=== PATIENT | female | born 1985 | race Hispanic/Latino ===

== ENCOUNTER 2018-03-21 09:28 | Emergency (ER) | payer MEDICAID | END 2018-03-21 10:55 | disposition home or self-care (01) | LOC: EDH 09:28 | DX: J06.9 Acute upper respiratory infection, unspecified (principal); Z88.1 Allergy status to other antibiotic agents; Z88.2 Allergy status to sulfonamides; Z87.442 Personal history of urinary calculi; Z90.49 Acquired absence of other specified parts of digestive tract | CPT/HCPCS: 99281 ==

== ENCOUNTER 2020-06-05 02:38 | Emergency (ER) | payer MEDICAID, OTHER ==
[2020-06-05 03:33] LABS: BASOPHILS % (AUTO) 0.4 % (0.0-5.0); EOSINOPHILS % (AUTO) 1.6 % (0.0-8.0); HEMATOCRIT 37.9 % (36-48); MEAN CORPUSCULAR HEMOGLOBIN 26.3 pg (27.0-33.0); MEAN CORPUSCULAR HGB CONC 31.9 g/dL (32.0-36.0); MEAN CORPUSCULAR VOLUME 82.4 fL (79-99); MONOCYTES % (AUTO) 7.7 % (3.0-13.0); PLATELET COUNT (AUTO) 268 K/uL (130-400); RED CELL DISTRIBUTION WIDTH 13.9 % (11.0-15.5)
[2020-06-05 03:42] LABS: POTASSIUM 3.5 mmol/L (3.5-5.1)
[2020-06-05 03:47] LABS: ALBUMIN 2.9 g/dL (3.5-5.0); BILIRUBIN,TOTAL 0.3 mg/dL (0.2-1.0); TOTAL PROTEIN, SERUM 7.5 g/dL (6.0-8.3)
[2020-06-05 04:05] LABS: APPEARANCE,URINE Cloudy (CLEAR); BILIRUBIN,URINE Negative (NEGATIVE); COLOR,URINE Dark Yellow (YELLOW); GLUCOSE, URINE (UA) Negative (NEGATIVE); KETONES,URINE Negative (NEGATIVE); LEUKOCYTE ESTERASE ,URINE Moderate (NEGATIVE); NITRATE,URINE Negative (NEGATIVE); OCCULT BLOOD,URINE Moderate (NEGATIVE); PH,URINE 5.5 (5.0-8.0); PROTEIN,URINE POS 2+ mg/dL (NEGATIVE)
[2020-06-05] MEDS ORDERED: CEFTRIAXONE SODIUM 1 GM ONE (04:16)
[2020-06-05] MEDS ORDERED: KETOROLAC TROMETHAMINE 30MG/ML ONE (04:16)
[2020-06-05 04:22] LABS: BACTERIA,URINE Few /HPF (None Seen); SQUAMOUS EPITHELIAL CELL,UR Rare /HPF (0-2)
== END 2020-06-05 06:47 | disposition home or self-care (01) ==
LOC: EDH 02:38
DX: N20.2 Calculus of kidney with calculus of ureter (principal); Z88.1 Allergy status to other antibiotic agents; Z88.2 Allergy status to sulfonamides; Z90.710 Acquired absence of both cervix and uterus; Z98.890 Other specified postprocedural states
CPT/HCPCS: 36415; 74176; 80053; 81001; 85025; 87088; 96365; 96375; 99284; J0696; J1885

== ENCOUNTER 2022-12-22 09:42 | Emergency (ER) | payer OTHER ==
[~2022-12-22] VITALS: Ht 162.6 cm; Wt 152.0 kg
[2022-12-22 10:32] LABS: APPEARANCE,URINE CLOUDY (CLEAR); BILIRUBIN,URINE NEGATIVE (NEGATIVE); COLOR,URINE LIGHT-YELLOW (YELLOW); GLUCOSE, URINE (UA) NEGATIVE (NEGATIVE); KETONES,URINE NEGATIVE (NEGATIVE); LEUKOCYTE ESTERASE ,URINE 500 Leu/uL (NEGATIVE); NITRATE,URINE 2+ (NEGATIVE); OCCULT BLOOD,URINE LARGE (NEGATIVE); PH,URINE 6.5 (5.0-8.0); PROTEIN,URINE 20 mg/dL (NEGATIVE); UROBILINOGEN,URINE 0.2 mg/dL (0.2-1.0)
[2022-12-22 10:36] LABS: HCG,QUALITATIVE URINE NEGATIVE (NEGATIVE)
[2022-12-22 10:49] LABS: BACTERIA,URINE RARE /HPF (None Seen); MUCUS,URINE RARE LPF (None Seen); SQUAMOUS EPITHELIAL CELL,UR RARE /HPF (0-2); WBC,URINE 51-100 /HPF (0-1); YEAST,URINE BUDDING FEW /HPF (None Seen)
[2022-12-22 10:52] LABS: BASOPHILS % (AUTO) 0.5 % (0.0-5.0); EOSINOPHILS % (AUTO) 0.4 % (0.0-8.0); HEMATOCRIT 42.4 % (36-48); LYMPHOCYTES % (AUTO) 21.2 % (21.0-51.0); MEAN CORPUSCULAR HEMOGLOBIN 26.9 pg (27.0-33.0); MEAN CORPUSCULAR HGB CONC 31.1 g/dL (32.0-36.0); MEAN CORPUSCULAR VOLUME 86.4 fL (79-99); MONOCYTES % (AUTO) 3.7 % (3.0-13.0); NEUTROPHILS % (AUTO) 73.8 % (40.0-77.0); PLATELET COUNT (AUTO) 274 K/uL (130-400); RED BLOOD CELL COUNT(AUTO) 4.91 MIL/uL (4.00-5.50); RED CELL DISTRIBUTION WIDTH 14.6 % (11.0-15.5); WHITE BLOOD COUNT (AUTO) 9.7 K/uL (4.8-10.8)
[2022-12-22 11:00] LABS: CREATININE 0.8 mg/dL (0.5-1.5)
[2022-12-22 11:05] LABS: ALBUMIN 2.9 g/dL (3.5-5.0); TOTAL PROTEIN, SERUM 6.8 g/dL (6.0-8.3)
[2022-12-22] MEDS ORDERED: CEFTRIAXONE 1G VIAL IM ONE (11:30)
[2022-12-22] MEDS ORDERED: CEFTRIAXONE 1G VIAL IVPB ONE (12:00)
[2022-12-22] MEDS ORDERED: ONDANSETRON 4MG INJ IVP ONE (12:00)
[2022-12-22] MEDS ORDERED: KETOROLAC 15MG/ML VIAL (15MG/ML) IV ONE (12:00)
[2022-12-22] MEDS ORDERED: 0.9%NACL 1000ML 1,000 ML IV ONE (12:00)
[2022-12-22] MEDS ORDERED: ONDA4TAB10 PO (13:08)
[2022-12-22] MEDS ORDERED: NITR100C PO (13:08)
[2022-12-22 14:38] VITALS: BP 128/81
== END 2022-12-22 14:42 | disposition home or self-care (01) ==
LOC: EDH 09:42
DX: N39.0 Urinary tract infection, site not specified (principal); Z88.1 Allergy status to other antibiotic agents; Z88.2 Allergy status to sulfonamides; Z90.49 Acquired absence of other specified parts of digestive tract
CPT/HCPCS: 99285; 74176; 96374; 96375; 80053; 83690; 85025; 87077; 87088; 87186; 81001; 81025; 36415; J7030; J0696; J2405; J1885

== ENCOUNTER 2024-02-05 23:23 | Inpatient (IN) | payer BC, OTHER ==
[~2024-02-05] VITALS: Ht 162.6 cm; Wt 166.9 kg
[~2024-02-05 23:23] MED LIST: NITR100C PO; ONDA-243 PO
[2024-02-05 23:48] LABS: BASOPHILS # (AUTO) 0.04 K/uL (0.00-0.20); BASOPHILS % (AUTO) 0.3 % (0.0-5.0); EOSINOPHILS # (AUTO) 0.05 K/uL (0.00-0.70); EOSINOPHILS % (AUTO) 0.4 % (0.0-8.0); HEMATOCRIT 38.7 % (36-48); IMMATURE GRANULOCYTE ABSOLUTE 0.05 K/uL (0-1); LYMPHOCYTES # (AUTO) 1.3 K/uL (1.0-4.8); LYMPHOCYTES % (AUTO) 10.8 % (21.0-51.0); MEAN CORPUSCULAR HEMOGLOBIN 25.2 pg (27.0-33.0); MEAN CORPUSCULAR VOLUME 81.3 fL (79-99); MONOCYTES # (AUTO) 0.1 K/uL (0.1-1.0); MONOCYTES % (AUTO) 0.7 % (3.0-13.0); NEUTROPHILS # (AUTO) 10.2 K/uL (1.8-7.7); NEUTROPHILS % (AUTO) 87.4 % (40.0-77.0); PLATELET COUNT (AUTO) 292 K/uL (130-400); RED BLOOD CELL COUNT(AUTO) 4.76 MIL/uL (4.00-5.50); RED CELL DISTRIBUTION WIDTH 15.8 % (11.0-15.5); WHITE BLOOD COUNT (AUTO) 11.7 K/uL (4.8-10.8)
[2024-02-06] VITALS (62 sets, daily range): BP systolic 101–135; BP diastolic 48–78; PULSE 82–107; RESP 5–48; TEMP 98.4–99.2; O2SAT 93–100
[2024-02-06 00:02] LABS: CREATININE 0.9 mg/dL (0.5-1.0); POTASSIUM 3.9 mmol/L (3.5-5.1)
[2024-02-06] MEDS: 0.9%NACL 1000ML 2,000 ML IV ONE (00:04)
[2024-02-06] MEDS: cefTRIAXone 1G VIAL IVPB STA (00:05)
[2024-02-06] MEDS: morPHINE 2 MG SYG IVP STA (00:16)
[2024-02-06] MEDS: ONDANSETRON 4MG INJ IVP STA (00:16)
[2024-02-06] MEDS: ketOROlac 30MG VIAL (30MG/ML) IM STA (00:16)
[2024-02-06 00:30] LABS: BILIRUBIN,URINE NEGATIVE (NEGATIVE); COLOR,URINE YELLOW (YELLOW); GLUCOSE, URINE (UA) NEGATIVE (NEGATIVE); KETONES,URINE NEGATIVE (NEGATIVE); LEUKOCYTE ESTERASE ,URINE MODERATE Leu/uL (NEGATIVE); NITRATE,URINE POSITIVE (NEGATIVE); OCCULT BLOOD,URINE MODERATE (NEGATIVE); PROTEIN,URINE 30 mg/dL (NEGATIVE); UROBILINOGEN,URINE 0.2 mg/dL (0.2-1.0)
[2024-02-06 00:34] LABS: ADD UA MICROSCOPIC YES
[2024-02-06 00:35] LABS: APPEARANCE,URINE SLIGHTLY CLOUDY (CLEAR)
[2024-02-06 00:41] LABS: WBC,URINE 26-50 /HPF (0-1)
[2024-02-06 00:42] LABS: BACTERIA,URINE Moderate /HPF (None Seen); YEAST,URINE BUDDING Rare /HPF (None Seen)
[2024-02-06 00:45] LABS: SQUAMOUS EPITHELIAL CELL,UR Few /HPF (0-2)
[2024-02-06] MEDS: acetaMINOPHEN 500 MG TABLET PO ONE (03:58)
[2024-02-06] MEDS: 0.9%NACL 1000ML 1,000 ML IV ONE (04:52)
[2024-02-06] MEDS: NOREPINEPHRIN 4MG/NS 250ML 250 ML IV SCH (04:52)
[2024-02-06] MEDS: LACTATED RINGERS 1000ML IV ONE (07:54)
[2024-02-06] MEDS: ZOSYN 3.375GM +NS 50ML IV SCH (07:58)
[2024-02-06] MEDS: FAMOTIDINE 20MG TAB PO SCH (07:58)
[2024-02-06] MEDS: IBUPROFEN 600 MG TABLET PO PRN (08:00)
[2024-02-06 08:20] LABS: INR 1.13 (0.85-1.15); PROTHROMBIN TIME 12.1 SEC (9.6-11.6)
[2024-02-06] MEDS ORDERED: ONDANSETRON 4MG INJ IV PRN (08:30)
[2024-02-06] MEDS ORDERED: acetaMINOPHEN 325 MG TAB PO PRN ×2 (08:30)
[2024-02-06] MEDS: ENOXAPARIN SODIUM 40 MG/0.4 ML SYRINGE SQ SCH (09:16)
[2024-02-06] MEDS: LACTATED RINGERS 1000ML 1,000 ML IV SCH (09:20)
[2024-02-06] MEDS ORDERED: IOHEXOL-350 50ML VIAL IV ONE (15:58)
[2024-02-06] MEDS: SUGAMMADEX SODIUM 200 MG/2 ML VIAL IV ONE (16:37)
[2024-02-06] MEDS: LACTATED RINGERS 1000ML IV SCH (17:55)
[2024-02-07] VITALS (32 sets, daily range): BP systolic 93–132; BP diastolic 40–67; PULSE 75–92; RESP 12–35; TEMP 97.6–98.7; O2SAT 94–99
[2024-02-07 04:26] LABS: BASOPHILS # (AUTO) 0.04 K/uL (0.00-0.20); BASOPHILS % (AUTO) 0.2 % (0.0-5.0); EOSINOPHILS # (AUTO) 0.35 K/uL (0.00-0.70); EOSINOPHILS % (AUTO) 1.6 % (0.0-8.0); HEMATOCRIT 30.2 % (36-48); IMMATURE GRANULOCYTE ABSOLUTE 0.16 K/uL (0-1); LYMPHOCYTES # (AUTO) 0.9 K/uL (1.0-4.8); MEAN CORPUSCULAR HEMOGLOBIN 25.1 pg (27.0-33.0); MEAN CORPUSCULAR HGB CONC 31.1 g/dL (32.0-36.0); MEAN CORPUSCULAR VOLUME 80.5 fL (79-99); MONOCYTES # (AUTO) 0.5 K/uL (0.1-1.0); MONOCYTES % (AUTO) 2.3 % (3.0-13.0); NEUTROPHILS # (AUTO) 20.5 K/uL (1.8-7.7); NEUTROPHILS % (AUTO) 91.2 % (40.0-77.0); PLATELET COUNT (AUTO) 197 K/uL (130-400); RED BLOOD CELL COUNT(AUTO) 3.75 MIL/uL (4.00-5.50); RED CELL DISTRIBUTION WIDTH 16.1 % (11.0-15.5); WHITE BLOOD COUNT (AUTO) 22.5 K/uL (4.8-10.8)
[2024-02-07 04:43] LABS: BILIRUBIN,TOTAL 0.4 mg/dL (0.2-1.0); MAGNESIUM 1.5 mg/dL (1.80-2.40); PHOSPHORUS 2.6 mg/dL (2.5-4.9); POTASSIUM 3.5 mmol/L (3.5-5.1); TOTAL PROTEIN, SERUM 6.2 g/dL (6.0-8.3)
[2024-02-07 04:50] LABS: B-TYPE NATRIURETIC PEPTIDE 200 pg/mL (0-100)
[2024-02-07 11:06] LABS: INR 1.28 (0.85-1.15); PROTHROMBIN TIME 13.6 SEC (9.6-11.6)
[2024-02-07] MEDS: MAGNESIUM 2GM PREMIX 50ML 50 ML IV SCH (18:37)
[2024-02-08] MEDS: traMADol HCL 50 MG TABLET PO PRN (00:15)
[2024-02-08 04:00] VITALS: BP 101/53; PULSE 73; RESP 19; TEMP 98.3
[2024-02-08] MEDS: IBUPROFEN 600 MG TABLET PO PRN (05:00)
[2024-02-08 05:17] LABS: HEMATOCRIT 30.2 % (36-48); MEAN CORPUSCULAR HEMOGLOBIN 25.1 pg (27.0-33.0); MEAN CORPUSCULAR HGB CONC 31.5 g/dL (32.0-36.0); MEAN CORPUSCULAR VOLUME 79.7 fL (79-99); RED BLOOD CELL COUNT(AUTO) 3.79 MIL/uL (4.00-5.50); RED CELL DISTRIBUTION WIDTH 16.2 % (11.0-15.5); WHITE BLOOD COUNT (AUTO) 19.2 K/uL (4.8-10.8)
[2024-02-08 05:43] LABS: ALBUMIN 2.1 g/dL (3.5-5.0); BILIRUBIN,TOTAL 0.1 mg/dL (0.2-1.0); CREATININE 0.8 mg/dL (0.5-1.0); MAGNESIUM 1.8 mg/dL (1.80-2.40); POTASSIUM 3.6 mmol/L (3.5-5.1); TOTAL PROTEIN, SERUM 6.4 g/dL (6.0-8.3)
[2024-02-08 08:00] VITALS: BP 97/61; PULSE 71; RESP 19; TEMP 98.1; O2SAT 99
[2024-02-08 12:00] VITALS: BP 110/60; PULSE 85; RESP 18; TEMP 98
[2024-02-08] MEDS: furoSEMIDE 20MG VIAL IVP SCH (13:06)
[2024-02-08 16:00] VITALS: BP 100/63; PULSE 79; RESP 19; TEMP 98.1
[2024-02-08 20:00] VITALS: BP 119/71; PULSE 80; RESP 19; TEMP 98.4; O2SAT 96
[2024-02-09] VITALS (9 sets, daily range): BP systolic 94–123; BP diastolic 53–75; PULSE 65–88; RESP 16–20; TEMP 97.5–98.5; O2SAT 96–97
[2024-02-09] MEDS ORDERED: POTASSIUM CHLORIDE 20MEQ/100ML 100 ML IV PRN ×2 (05:00)
[2024-02-09] MEDS ORDERED: POTASSIUM CHLORIDE 10% ELIXIR 20 MEQ/15 ML UDCUP PO PRN (05:00)
[2024-02-09 05:55] LABS: HEMATOCRIT 31.8 % (36-48); MEAN CORPUSCULAR HEMOGLOBIN 24.8 pg (27.0-33.0); MEAN CORPUSCULAR HGB CONC 31.1 g/dL (32.0-36.0); MEAN CORPUSCULAR VOLUME 79.5 fL (79-99); RED CELL DISTRIBUTION WIDTH 15.9 % (11.0-15.5); WHITE BLOOD COUNT (AUTO) 11.3 K/uL (4.8-10.8)
[2024-02-09 06:44] LABS: CREATININE 0.9 mg/dL (0.5-1.0); PHOSPHORUS 4.5 mg/dL (2.5-4.9); POTASSIUM 3.1 mmol/L (3.5-5.1)
[2024-02-09 06:59] LABS: ALBUMIN 2.4 g/dL (3.5-5.0); BILIRUBIN,TOTAL 0.3 mg/dL (0.2-1.0)
[2024-02-09] MEDS: KCL 20 MEQ ERTAB PO PRN (07:36)
[2024-02-09 07:44] LABS: MAGNESIUM 1.8 mg/dL (1.80-2.40)
[2024-02-09] MEDS: LACTULOSE 20 GM/30 ML UDCUP PO ONE (13:03)
[2024-02-09] MEDS: MAGNESIUM HYDROXIDE 30 ML/UDCUP PO ONE (13:03)
[2024-02-09] MEDS: BisaCODYL 10 MG SUPP.RECT RC ONE (13:04)
[2024-02-10] VITALS (8 sets, daily range): BP systolic 92–151; BP diastolic 53–70; PULSE 78–94; RESP 16–20; TEMP 97.3–98.5; O2SAT 94
[2024-02-11] VITALS (26 sets, daily range): BP systolic 101–128; BP diastolic 61–87; PULSE 71–89; RESP 17–22; TEMP 97.6–99; O2SAT 96
[2024-02-11 05:59] LABS: BASOPHILS # (AUTO) 0.07 K/uL (0.00-0.20); BASOPHILS % (AUTO) 0.5 % (0.0-5.0); EOSINOPHILS # (AUTO) 0.22 K/uL (0.00-0.70); EOSINOPHILS % (AUTO) 1.6 % (0.0-8.0); HEMATOCRIT 36.8 % (36-48); IMMATURE GRANULOCYTE ABSOLUTE 0.23 K/uL (0-1); LYMPHOCYTES # (AUTO) 3.3 K/uL (1.0-4.8); LYMPHOCYTES % (AUTO) 23.9 % (21.0-51.0); MEAN CORPUSCULAR HEMOGLOBIN 24.8 pg (27.0-33.0); MEAN CORPUSCULAR VOLUME 80.2 fL (79-99); MONOCYTES # (AUTO) 0.7 K/uL (0.1-1.0); MONOCYTES % (AUTO) 4.9 % (3.0-13.0); NEUTROPHILS # (AUTO) 9.2 K/uL (1.8-7.7); NEUTROPHILS % (AUTO) 67.4 % (40.0-77.0); PLATELET COUNT (AUTO) 306 K/uL (130-400); RED BLOOD CELL COUNT(AUTO) 4.59 MIL/uL (4.00-5.50); RED CELL DISTRIBUTION WIDTH 15.8 % (11.0-15.5); WHITE BLOOD COUNT (AUTO) 13.6 K/uL (4.8-10.8)
[2024-02-11 06:14] LABS: INR 1.01 (0.85-1.15); PROTHROMBIN TIME 10.9 SEC (9.6-11.6)
[2024-02-11 06:15] LABS: PARTIAL THROMBOPLASTIN TIME 24.5 SEC (26.3-35.5)
[2024-02-11 06:20] LABS: ALBUMIN 2.7 g/dL (3.5-5.0); BILIRUBIN,TOTAL 0.4 mg/dL (0.2-1.0); CREATININE 0.9 mg/dL (0.5-1.0); POTASSIUM 3.8 mmol/L (3.5-5.1); TOTAL PROTEIN, SERUM 7.6 g/dL (6.0-8.3)
[2024-02-11] MEDS ORDERED: LIDOCAINE PF 100MG/5ML (2%) SYRINGE 5ML ONE (12:25)
[2024-02-11] MEDS ORDERED: SUCCINYLCHOLINE CHLORIDE 20 MG/ML 10 ML VIAL ONE ×2 (12:25→12:55)
[2024-02-11] MEDS ORDERED: dexaMETHasone SOD PHOSPHATE 4 MG/ML 1ML VIAL ONE (12:25)
[2024-02-11] MEDS ORDERED: GLYCOPYRROLATE 0.2 MG/ML 5 ML VIAL ONE (12:26)
[2024-02-11] MEDS ORDERED: MIDAZOLAM HCL 1 MG/ML 2ML VIAL ONE (12:26)
[2024-02-11] MEDS ORDERED: ONDANSETRON 4MG INJ ONE (12:26)
[2024-02-11] MEDS ORDERED: proPOFol 10 MG/ML 20ML VIAL IV ONE (12:26)
[2024-02-11] MEDS ORDERED: NEOSTIGMINE METHYLSULFATE 1MG/ML IV ONE (12:26)
[2024-02-11] MEDS ORDERED: rocuRONium bROMide 10MG/1ML 5ML VL ONE ×2 (12:27→13:37)
[2024-02-11] MEDS ORDERED: FENTanyl CITRate PF 50 MCG/1 ML 2ML VIAL ONE ×2 (12:27→13:29)
[2024-02-11] MEDS ORDERED: ROPivacaine 0.5% 5MG/ML 30ML ONE (12:32)
[2024-02-11] MEDS ORDERED: PHENYLEPHRINE HCL 10 MG/ML 1ML VIAL IV ONE (13:18)
[2024-02-11] MEDS: MEPERIDINE-PF 25 MG/ML SYG ONE ×2 (15:11→15:20)
[2024-02-11] MEDS: ONDANSETRON 4MG INJ ONE (15:11)
[2024-02-12] VITALS (7 sets, daily range): BP systolic 104–112; BP diastolic 53–73; PULSE 65–85; RESP 16–19; TEMP 97.6–98.5; O2SAT 94–98
[2024-02-12 05:15] LABS: BASOPHILS # (AUTO) 0.02 K/uL (0.00-0.20); BASOPHILS % (AUTO) 0.1 % (0.0-5.0); HEMATOCRIT 34.2 % (36-48); IMMATURE GRANULOCYTE ABSOLUTE 0.22 K/uL (0-1); LYMPHOCYTES # (AUTO) 1.6 K/uL (1.0-4.8); LYMPHOCYTES % (AUTO) 10.5 % (21.0-51.0); MEAN CORPUSCULAR HEMOGLOBIN 24.7 pg (27.0-33.0); MEAN CORPUSCULAR VOLUME 79.7 fL (79-99); MONOCYTES # (AUTO) 0.5 K/uL (0.1-1.0); MONOCYTES % (AUTO) 3.3 % (3.0-13.0); NEUTROPHILS % (AUTO) 84.7 % (40.0-77.0); PLATELET COUNT (AUTO) 365 K/uL (130-400); RED BLOOD CELL COUNT(AUTO) 4.29 MIL/uL (4.00-5.50); RED CELL DISTRIBUTION WIDTH 15.6 % (11.0-15.5); WHITE BLOOD COUNT (AUTO) 15.4 K/uL (4.8-10.8)
[2024-02-12 05:28] LABS: ALBUMIN 2.5 g/dL (3.5-5.0); BILIRUBIN,TOTAL 0.3 mg/dL (0.2-1.0); CREATININE 0.8 mg/dL (0.5-1.0); POTASSIUM 4.2 mmol/L (3.5-5.1); TOTAL PROTEIN, SERUM 7.6 g/dL (6.0-8.3)
[2024-02-12] MEDS ORDERED: IpraTROPium 0.5 MG/2.5 ML INH IH SCH (10:30)
[2024-02-12] MEDS: Solu-medROL 40MG VIAL IVP ONE (10:43)
[2024-02-12] MEDS: IpraTROPium 0.5 MG/2.5 ML INH IH ONE (11:31)
[2024-02-12] MEDS: IpraTROPium 0.5 MG/2.5 ML INH IH SCH (11:32)
[2024-02-12] MEDS ORDERED: LEVO-70 PO (13:45)
[2024-02-12] MEDS ORDERED: FAMO20TA8 PO (13:45)
[2024-02-12] MEDS ORDERED: IBUP-2070 PO (13:45)
[2024-02-12] MEDS ORDERED: BUDESONIDE 0.5 MG/2 ML INH IH SCH ×2 (18:00→21:00)
[2024-02-26 14:17] LABS: STONE COLOR SSR; STONE COMPOSITION SSR; STONE SIZE SSR; STONE WEIGHT SSR
== END 2024-02-12 15:30 | disposition home or self-care (01) | DRG 853 ==
LOC: EDH 23:23 → EDHIP 02-06 08:17 → 2CH 02-06 12:12 → 3BH 02-07 17:45
PROVIDERS: ADMIT Internal Medicine; ATTEND Internal Medicine
PROC: 0T788DZ Dilation of Bilateral Ureters with Intraluminal Device, Via Natural or Artificial Opening Endoscopic (ICD-10-PCS; 2024-02-06)
PROC: BT1D1ZZ Fluoroscopy of Right Kidney, Ureter and Bladder using Low Osmolar Contrast (ICD-10-PCS; 2024-02-06)
PROC: 05HB33Z Insertion of Infusion Device into Right Basilic Vein, Percutaneous Approach (ICD-10-PCS; 2024-02-07)
PROC: 0WQF4ZZ Repair Abdominal Wall, Percutaneous Endoscopic Approach (ICD-10-PCS; principal; 2024-02-11 13:00)
DX: A41.51 Sepsis due to Escherichia coli [E. coli] (principal); R65.21 Severe sepsis with septic shock; N13.6 Pyonephrosis; Z68.44 Body mass index [BMI] 60.0-69.9, adult; D62 Acute posthemorrhagic anemia; K43.2 Incisional hernia without obstruction or gangrene; N13.9 Obstructive and reflux uropathy, unspecified; E66.01 Morbid (severe) obesity due to excess calories; I10 Essential (primary) hypertension; E87.6 Hypokalemia; Z90.49 Acquired absence of other specified parts of digestive tract; Z87.442 Personal history of urinary calculi; Z88.2 Allergy status to sulfonamides; Z87.440 Personal history of urinary (tract) infections; Z79.899 Other long term (current) drug therapy
CPT/HCPCS: 36415; 36556; 71045; 74176; 74420; 76770; 80048; 80053; 81001; 82360; 82550; 83605; 83735; 83880; 84100; 84145; 84484; 84703; 85025; 85027; 85610; 85730; 87040; 87086; 87186; 93005; 93306; 93356; 94640; 94664; C1758; C1769; C1894; C2617; G0378; J0330; J0696; J1100; J1650; J1885; J1940; J2001; J2175; J2250; J2270; J2371; J2405; J2543; J2704; J2710; J2795; J2919; J3010; J3475; J3490; J7030; J7120; Q9967; A4216; A4222; A4223; A4358; A4649; A4930; C1750